=== PATIENT | male | born 1935 | race Caucasian/White ===

== ENCOUNTER → 2016-06-07 | Day surgery (SDC) | payer MEDICARE, OTHER ==
[~2016-06-07] VITALS: Ht 172.7 cm; Wt 91.8 kg
[~2016-06-07] MED LIST: COZAAR100 MG PO; HYDRODIURIL25 MG PO; LUTEIN20 MG PO; NORCO 5-325 TA1 EACH PO; PRILOSEC20 MG PO; XALATAN2.5 ML OPHTH; ZOCOR40 MG PO
--- NOTE | ~2016-06-07 | OR ---
[facility] 81 Y [address] 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 POSTOPERATIVE DIAGNOSIS: Midline scalp squamous cell carcinoma. PROCEDURE: 1. Wide local excision squamous cell carcinoma of scalp 2.3 x 2.2 cm. 2. O to Z flap reconstruction 12 x 6 cm. ANESTHESIA: Local with MAC. COMPLICATIONS: None. BLOOD LOSS: 20 mL. FINDINGS: Negative frozen section margins. 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 We discussed surgical resection and he provided informed consent. DESCRIPTION OF PROCEDURE: The patient was brought to the operative suite, placed on table in supine position. All pressure points were padded. Time- out was performed correctly identifying the patient and procedure. MAC anesthesia was initiated. There after local was infused with 1% lidocaine with epinephrine and 0.5% Marcaine with epinephrine in 1:1 ratio. After allowing this to take effect, the patient was prepped and draped in sterile fashion. 5 mm margins were marked out around the lesion which was in the midline frontal scalp above the forehead and this was resected down to the galea and sent for frozen section which returned as negative. After resection, an O to Z flap was designed and undermined. This was brought together with 3-0 Vicryl sutures deep and 3-0 Prolene sutures for the skin. Idris's triangles were removed as necessary. Ointment was applied. Head was cleansed at the end of the procedure. The patient was returned to the care of Anesthesia for complete awakening and transferred to the PACU in stable condition. [facility]GE[facility] 81 Y [address] ROOM: [place] [address] [place] [facility] [place]: 06/07/2016 OR/Procedure Report DISCHARGE DATE: FAMILY PHYSICIAN: LAKESHIA ANDERSON MD ATTENDING PHYSICIAN: RUKHSANA CANTU MD CARLOS QUINTEROS/briel /[id number] d: 06/07/16 1613 t: 06/14/16 [facility]5, OPERATIVE SUMMARY
== END | disposition disaster alternative care site (69) ==
LOC: GPOC 05-30 10:00 → GSDC 06:57 → GPOC 07:00
PROC: 0HB0XZZ Excision of Scalp Skin, External Approach (ICD-10-PCS; principal; 2016-06-07)
DX: C44.42 Squamous cell carcinoma of skin of scalp and neck (principal); I12.9 Hypertensive chronic kidney disease with stage 1 through stage 4 chronic kidney disease, or unspecified chronic kidney disease; N18.9 Chronic kidney disease, unspecified; I35.9 Nonrheumatic aortic valve disorder, unspecified; K21.9 Gastro-esophageal reflux disease without esophagitis; E78.5 Hyperlipidemia, unspecified; R01.1 Cardiac murmur, unspecified; Z87.891 Personal history of nicotine dependence; Z88.8 Allergy status to other drugs, medicaments and biological substances; Z90.49 Acquired absence of other specified parts of digestive tract; Z98.890 Other specified postprocedural states; Z79.899 Other long term (current) drug therapy
CPT/HCPCS: J2001; J7120

== ENCOUNTER → 2016-09-12 | Outpatient (CLI) | payer MEDICARE, OTHER | END | disposition disaster alternative care site (69) | LOC: GRAD 13:41 | DX: N19 Unspecified kidney failure (principal); Q61.02 Congenital multiple renal cysts ==